=== PATIENT | male | born 1980 ===

== ENCOUNTER 2016-07-04 12:25 | Emergency (ER) | payer SELFPAY ==
[~2016-07-04] VITALS: Ht 182.9 cm; Wt 95.0 kg
[2016-07-04 12:28] VITALS: Ht 182.9 cm; Wt 95.0 kg
[2016-07-04] MEDS ORDERED: LIDOCAINE 1% (MDV) 20 ML INJ SC ONE (13:00)
[2016-07-04] MEDS ORDERED: DIPHTH/TET/ACEL PERTUSS (ADULT) 0.5 ML VIAL IM* ONE (13:00)
--- NOTE | 2016-07-04 13:24 | ERD ---
ER Documentation Chief Complaint Date/Time DATE: 07/04/16 TIME: 13:22 Chief Complaint bib ra for lt eye injury s/p hit by softball HPI This 35-year-old male was playing softball in the law enforcement the game today. So the left side of the face with a softball. His glasses appear to have caused a laceration on his left cheek and his left eyebrow area. Denies any visual changes or pain or significant swelling. Denies any neck pain or weakness or loss of consciousness. Tetanus is not up-to-date per ROS All systems reviewed and are negative except as per history of present illness. PMhx/Soc Medical and Surgical Hx: pt denies Medical Hx, pt denies Surgical Hx History of Surgery: No Anesthesia Reaction: No Hx Neurological Disorder: No Hx Respiratory Disorders: No Hx Cardiac Disorders: No Hx Psychiatric Problems: No Hx Miscellaneous Medical Probl: No Hx Alcohol Use: No Hx Substance Use: No Hx Tobacco Use: No Smoking Status: Never smoker Physical Exam Vitals Vital Signs Date Time Temp Pulse Resp B/P Pulse Ox O2 Delivery O2 Flow Rate FiO2 07/04/16 12:28 98.1 78 18 144/77 100 Physical Exam Const: [] Alert, [id number] Head: Atraumatic Eyes: Normal Conjunctiva. Eyes are PERRLA and extraocular movements intact. Visual acuity is 20/15 bilaterally. ENT: Normal External Ears, Nose and Mouth. There is a 4 cm laceration the left zygoma area without bony tenderness or deformities. There is a 2 cm laceration over the left eyebrow. There is no point tenderness or deformities. Neck: Full range of motion..~ No meningismus. Resp: Clear to auscultation bilaterally Cardio: Regular rate and rhythm, no murmurs Abd: Soft, non tender, non distended. Normal bowel sounds Skin: No petechiae or rashes Back: No midline or flank tenderness Ext: No cyanosis, or edema Neur: Awake and alert Psych: Normal Mood and Affect Results 24 hrs Current Medications Medications (Trade) Dose Ordered Sig/Valerie Route PRN Reason Start Time Stop Time Status Last Admin Dose Admin Diphtheria/ Tetanus/Acell Pertussis (Adacel) 0.5 ml ONCE ONCE IM* 07/04/16 13:00 07/04/16 13:01 DC Lidocaine (Xylocaine 1% (Mdv) 20 ml) 20 ml ONCE ONCE SC 07/04/16 13:00 07/04/16 13:01 DC Procedures/MDM Patient was administered a tetanus booster. Procedure note-the left facial lacerations were irrigated copiously with normal saline. 3 cc of lidocaine was used for local infiltration. 7 6-0 nylon sutures were used to repair the left zygoma laceration and 4 suture were used to repair the eyebrow laceration and the patient tolerated procedure well. Patient presents a left facial laceration due to his glasses after being hit in a softball with face today. There is no signs or symptoms to suggest fracture, dislocation, orbital fracture, visual changes. Discharged home instructions for wound check in 3 days and suture removal in 5-7 days. Patient should return sooner for vomiting, visual changes, fevers, new or worsening symptoms. Departure Diagnosis: Primary Impression: Facial contusion Encounter type: initial encounter Qualified Code: S00.83XA - Facial contusion, initial encounter Additional Impression: Laceration Condition: Stable Patient Instructions: Facial Contusion, No Wakeup, Laceration, Face (Suture Or Tape) Additional Instructions: Recommend a wound check in 2 days and suture removal in 5-7 days. Recheck sooner for new or worsening symptoms, fevers, visual changes, vomiting. ALEXIS WARREN MD July 04, 2016 13:24
[2016-07-04 13:58] VITALS: BP 128/60; PULSE 88; RESP 18; TEMP 97.9
== END 2016-07-04 13:58 | disposition home or self-care (01) ==
LOC: FTE 12:25 → EDBD 12:25 → FTE 13:58
DX: S01.412A Laceration without foreign body of left cheek and temporomandibular area, initial encounter (principal); W21.07XA Struck by softball, initial encounter; Y92.9 Unspecified place or not applicable; Z23 Encounter for immunization
CPT/HCPCS: 90471; 90715